=== PATIENT | female | born 1940 | race Caucasian/White ===

== ENCOUNTER → 2018-09-28 07:27 | Day surgery (SDC) | payer MEDICARE ==
[~2018-09-28 07:27] MED LIST: Buffered Lidocaine 0.9% SYRIN* 5 ML/SYR SYRINGE INTRADERM ONE; DiMENhydriNATE IV* 50 MG/ML VIAL IV PUSH PRN; Famotidine IV* 10 MG/ML 2 ML (20 mg) IV ONE; KETAMINE HCL* 50 MG/ML 10 ML VIAL ONE; Lidocaine 2% PF * 5 ML VIAL ONE; Lidocaine 2% PF* 10 ML AMP ONE; Midazolam* 1 MG/ML 5 ML VIAL (5 MG) ONE; Morphine VIAL* 4 MG/ML VIAL (1 ml vial) IV PRN; Naloxone* 0.4 MG/ML 1 ML VIAL IV PRN; PROCHLORPERAZINE INJ 5 MG/ML 2 ML VIAL IV PRN; Propofol* 500 MG/50 ML BTL ONE; ceFAZolin 2 GM PREMIX in ORs 2 GM/50 ML BAG IVPB ONE; fentaNYL* 50 MCG/ML 2 ML VIAL (100 MCG VIAL) IV PRN; fentaNYL* 50 MCG/ML 2 ML VIAL (100 MCG VIAL) ONE; oxyCODONE/Acetamin 5/325 MG* TAB PO PRN
[2018-09-28 11:07] VITALS: BP 151/90
--- NOTE | 2018-09-29 04:05 | OP ---
DATE OF OPERATION: 09/28/18 - [facility] DATE OF : 44 SURGEON: Andrey Delong MD PRE-OP DIAGNOSIS: Soft tissue mass, left lateral forefoot. POST-OP DIAGNOSIS: Soft tissue mass, left lateral forefoot. OPERATIVE PROCEDURE: Excision of mass, left forefoot. DESCRIPTION OF PROCEDURE: The patient was taken to the operating room, where a 3 cm incision was made over the dorsal lateral aspect in the left 5th MTP joint. We incised directly through the skin and encountered what looked like a hemangioma. It was a vascular soft tissue lesion which was well encapsulated and removed from the surrounding tissues. There was a small feeder vessel plantar lateral which was cauterized. The mass itself was probably 1 x 2 cm in size and was sent to Pathology. We then irrigated surrounding soft tissues closing with 3-0 Vicryl, 4-0 nylon and a compression dressing applied. [id number] #: [id number] MTDD
== END | disposition home or self-care (01) ==
LOC: OR 07:27
PROVIDERS: ATTEND Orthopaedic Surgery
DX: M67.472 Ganglion, left ankle and foot (principal); I34.1 Nonrheumatic mitral (valve) prolapse; K21.9 Gastro-esophageal reflux disease without esophagitis; R13.10 Dysphagia, unspecified; E78.00 Pure hypercholesterolemia, unspecified
CPT/HCPCS: 88304; J0690; J2001; J2250; J2704; J3010